=== PATIENT | female | born 2000 | race Caucasian/White ===

== ENCOUNTER 2022-05-20 20:32 | Emergency (ER) | payer MEDICAID ==
[~2022-05-20] VITALS: Ht 154.9 cm; Wt 65.9 kg
[2022-05-20 22:04] VITALS: BP 89/52
[2022-05-20] MEDS ORDERED: OFLO5DRO5 RIGHT EAR (23:07)
[2022-05-20] MEDS ORDERED: [UNRECOGNIZED DRUG - CODE] PO (23:07)
[2022-05-20] MEDS ORDERED: amoxicillin/clavulanate potass. 1000/62.5mg TAB.SR.12h PO STA (23:08)
[2022-05-20] MEDS ORDERED: acetaminophen 325mg tablet PO ONE (23:10)
[2022-05-20] MEDS ORDERED: ibuprofen 200mg tablet PO ONE (23:20)
== END 2022-05-20 23:26 | disposition home or self-care (01) ==
LOC: ER 20:33
DX: H66.91 Otitis media, unspecified, right ear (principal)
CPT/HCPCS: 99283

== ENCOUNTER 2024-07-17 21:17 | Emergency (ER) | payer MEDICAID ==
[~2024-07-17] VITALS: Ht 154.9 cm; Wt 84.9 kg
[~2024-07-17 21:17] MED LIST: OFLO5DRO5 RIGHT EAR; [UNRECOGNIZED DRUG - CODE] PO
[2024-07-17 21:36] VITALS: PULSE 87; RESP 3; TEMP 97.3; O2SAT 96
== END 2024-07-17 23:58 | disposition left against medical advice (07) ==
LOC: ER 21:18
DX: R10.9 Unspecified abdominal pain (principal); Z53.21 Procedure and treatment not carried out due to patient leaving prior to being seen by health care provider

== ENCOUNTER 2024-08-30 02:42 | Emergency (ER) | payer MEDICAID ==
[~2024-08-30] VITALS: Ht 154.9 cm; Wt 81.8 kg
[2024-08-30 02:46] VITALS: TEMP 97.2
[2024-08-30 03:05] LABS: LEUKOCYTE ESTERASE ,URINE MODERATE (Neg); NITRITES, URINE NEGATIVE (Neg); OCCULT BLOOD,URINE LARGE (Neg)
[2024-08-30 03:13] LABS: UA COLLECTION TYPE CLN CATCH MIDSTREAM
[2024-08-30 03:14] LABS: SQUAMOUS EPITHELIAL CELL,UR FEW /LPF (FEW)
[2024-08-30 03:15] LABS: MUCUS STRANDS MODERATE /LPF (Neg)
--- NOTE | 2024-08-30 03:38 | Physician Documentation ---
History of Present Illness ~ Chief Complaint: Urinary Symptoms Stated Complaint: LOWER ABDOMINAL PAIN Time Seen by MD: 03:33 OK to notify your PCP?: Yes Primary Medical Doctor: [facility] Source: patient, RN/MD, RN notes reviewed, old records Mode of Arrival: POV Exam Limitations: no limitations HPI 23 year old female presents to emergency department seen in bed 02 presenting for complaints of urinary symptoms for two days. She states that she has been having clear and cloudy discharge which is unusual for her. Additionally she s tates that when urinating she has been having increased frequency and pain. She denies any fevers, flank pain, or new sexual partners. Medication Reconciliation Allergies: Coded Allergies: No Known Allergies (Unverified , 08/30/24) Scheduled Amoxicillin/Potassium Clav (Amoxicillin-Clav ER 1,000-62.5), 1 TAB PO Q12H Doxycycline Hyclate (Doxycycline Hyclate), 1 CAP PO Q12H Ofloxacin (Ofloxacin), 10 DROP RIGHT EAR Q12H Past Medical History Past Medical History: No Pertinent History Past Surgical History: no surgical history Alcohol Use: None Lives with: Mother, Father Lives In: Home Review of Systems All Other Systems at this time: Reviewed and Negative ROS As stated above in the HPI, otherwise all systems are reviewed and negative. Physical Exam Vital Signs: RN Vital Signs have been reviewed: Yes, Temperature: 97.2, Source: Oral, Heart Rate: 92, Respiratory Rate: 18, BP: 118/85, Pulse Oximetry: 97, Weight: 81.820 Pulse Oximetry Reflects: adequate oxygenation Physical Exam General: The patient is well developed, well nourished, nontoxic appearing and is in no acute distress. Skin: [place], warm and dry with no rashes. HEENT: Head was normocephalic and atraumatic. Eyes - pupils equal, round, reactive to light and accommodation. Extraocular movements were intact. Conjunctivae were nonicteric. Ears - bilateral tympanic membranes were normal. The mouth and oropharynx were clear with moist mucous membranes. There were no pharyngeal exudates or erythema. Neck: Supple and nontender. There was no jugular venous distention, lymphadenopathy, thyromegaly or masses. Chest: Clear to auscultation bilaterally without wheezes, rales or rhonchi. No accessory muscle use. No dullness to percussion. Heart: Rate regular and rhythmic. S1, S2. No murmurs. Palpation of the chest wall was normal. No rubs or thrills. Abdomen: Suprapubic tenderness. Positive bowel sounds. No guarding or rebound. No hepatosplenomegaly or palpable masses. Extremities: No cyanosis, clubbing or edema. The patient moves all extremit ies. Pulses were equal and symmetric. Neurologic: Cranial nerves II-XII were intact. Sensation was intact to light touch throughout. Motor strength was 5/5 in all four extremities. Deep tendon reflexes were intact in both upper and lower extremities. Psychologic: The patient was oriented to person, place and time. The patient demonstrated appropriate judgement and insight. Progress Results/Orders Reviewed/noted all lab results: Yes Results/Orders Orders - MARCOS CAMP MD Cult Urine + [place] (08/30/24 03:15) Completed Orders - MARCOS CAMP MD Ua W/Microscopic, Cult If Ind (08/30/24 02:51) Doxycycline 100mg Capsule (Vibramycin 10 (08/30/24 03:43) Phenazopyridine Tablet (Pyridium Tablet) (08/30/24 03:45) Medications Received in ER Medications (Trade) Dose Ordered Sig/Suhas Route PRN Reason Start Time Stop Time Status Last Admin Dose Admin (VIBRAMYCIN 100mg capsule) 100 mg ONCE STAT PO 08/30/24 03:43 08/30/24 03:47 DC 08/30/24 04:16 100 MG (Pyridium tablet) 200 mg ONCE ONCE PO 08/30/24 03:45 08/30/24 03:47 DC 08/30/24 04:16 200 MG Vital Signs 08/30/24 08/30/24 08/30/24 02:46 02:59 04:19 Temp 97.2 Pulse 92 88 Resp 18 16 B/P (MAP) 118/85 112/72 Pulse Ox 97 99 Laboratory Tests Test 08/30/24 02:51 Urine Specimen Description Cln catch midstream Urine Color Yellow Urine Clarity Cloudy Urine pH 6.0 Urine Specific Leiter 1.025 Urine Protein 100 H Urine Glucose (UA) Negative Urine Ketones Negative Urine Occult Blood Large H Urine Nitrite Negative Urine Bilirubin Negative Urine Urobilinogen 0.2 Urine Leukocyte Esterase Moderate H Urine RBC 20-50 Urine WBC 20-30 H Urine Squamous Epithelial Cells Few Urine Bacteria 1+ Urine Mucus Moderate Urine Culture Indicated Indicated Volume Urine Centrifuged 10 ml Urine Comment Microbiology Date/Time Source Procedure Growth Status 08/30/24 03:15 Urine Clean Catch Midstream Urine Culture - Preliminary Culture received. Resulted Re-Evaluation Re-Evaluation : Re-Evaluation: Improved Progress Patient was seen and examined. Patient is given reassurance. Patient was found to have a urinary tract infection with a significant amount of WBCs. The patient had no concerns regarding STDs and did not want to be tested. She states she has had UTIs in the past. She denies any nausea vomiting fevers or significant flank pain. Patient was given doxycycline in his single dose of Pyridium prior to discharge. She was encouraged to drink lots of fluids. Patient's UA shows a specific gravity of 1.025 with large occult blood moderate leukocyte esterase with 20-50 RBCs 20-30 WBCs few squamous epithelial cells with 1+ bacteria. Patient had no signs of pyelonephritis able to tolerate her pills and was discharged home. Medical Decision Making Urinary Diff Dx:Considerations: Include: PID, Pyelonephritis, Urinary Obstruction, Urolithiasis, Urinary retention, UTI Departure Time of Disposition: 03:48 Disposition: 01 HOME / SELF CARE / HOMELESS Impression: Primary Impression: Acute urinary tract infection Condition: Stable Discharge Instructions: Urinary Tract Infection, Adult Referrals: NO PRIMARY CARE PROVIDER (PCP) Prescriptions Doxycycline Hyclate (Doxycycline Hyclate) 100 Mg Capsule 1 CAP PO Q12H for 10 Days, #20 CAP Prov: MARCOS CAMP MD 08/30/24 Education Educated: Patient Educated regarding: diagnosis, treatment, prognosis Signature Scribe Signature: Scribed for Marcos Camp MD by Rita Marie . 08/30/24 03:49 Attestation: The note accurately reflects work and decisions made by me.Marcos Camp MD 08/30/24 03:37 MARCOS CAMP MD Aug 30, 2024 03:37 RITA CHAPA Aug 30, 2024 03:49
[2024-08-30] MEDS ORDERED: DOXY-225 PO (03:47)
[2024-08-30] MEDS: phenazopyridine 100mg tablet PO ONE (04:16)
[2024-08-30] MEDS: DOXYCYCLINE 100MG CAPSULE PO STA (04:16)
[2024-08-30 04:19] VITALS: BP 112/72; PULSE 88; RESP 16; O2SAT 99
== END 2024-08-30 04:21 | disposition home or self-care (01) ==
LOC: ER 02:43
DX: N39.0 Urinary tract infection, site not specified (principal)
CPT/HCPCS: 81001; 87077; 87088; 87186; 99283

== ENCOUNTER 2024-11-09 16:07 | Emergency (ER) | payer MEDICAID ==
[~2024-11-09] VITALS: Ht 157.5 cm; Wt 79.4 kg
[2024-11-09 16:09] VITALS: BP 129/95; PULSE 118; RESP 18; O2SAT 100
--- NOTE | 2024-11-09 17:18 | Physician Documentation ---
History of Present Illness ~ Chief Complaint: Mouth Pain Stated Complaint: "SOMETHING GROWING IN MOUTH" Time Seen by MD: 16:42 Primary Medical Doctor: [facility] HPI This is a 24-year-old female who presents with concern for painful white patches in her mouth including on gums and tongue, patient reports symptoms worsening over the last week. Patient reports she is not on any medications currently. Patient reports no known past medical history. Medication Reconciliation Allergies: Coded Allergies: No Known Allergies (Unverified , 11/09/24) Scheduled Amoxicillin/Potassium Clav (Amoxicillin-Clav ER 1,000-62.5), 1 TAB PO Q12H Nystatin (Nystatin), 5 ML PO Q6H Ofloxacin (Ofloxacin), 10 DROP RIGHT EAR Q12H Past Medical History Past Medical History: No Pertinent History Past Surgical History: no surgical history Alcohol Use: None Lives with: Mother, Father Lives In: Home Review of Systems ROS As stated above in the HPI, otherwise all systems are reviewed and negative. Physical Exam Vital Signs: Temperature: 96.9, Source: Temporal, Heart Rate: 118, Respiratory Rate: 18, BP: 129/95, Pulse Oximetry: 100, Weight: 79.400 Oxygen Flow Rate: 0 Physical Exam VITALS: Reviewed and as above. GENERAL: Alert, nontoxic appearing, no apparent distress. HEENT: White tender patches to upper gums, small amount of plaque able to be scraped from patch to upper gums, entire surface of tongue covered with light growth tender on attempt to scrape, pharynx normal appearance without swelling of tonsils or patches or exudates. RESPIRATORY: No increased work of breathing, no respiratory distress, speaking in full clear sentences Progress Results/Orders Results/Orders Completed Orders - RAFA PALACIO Fluconazole Tablet (Diflucan Tablet) (11/09/24 17:45) Vital Signs 11/09/24 11/09/24 16:09 18:14 Temp 96.9 96.9 Pulse 118 Resp 18 B/P (MAP) 129/95 Pulse Ox 100 O2 Flow Rate 0 Medical Decision Making Findings This is a 24-year-old female who presented with concern for painful white patches in her mouth including on gums and tongue, patient reports symptoms worsening over the last week. No reported past medical history and not currently on medications including steroids or immune suppressants. Concern for thrush versus leukoplakia, given patches or tender will treat for thrush. Due to concern for immune compromise patient has been advised to follow up promptly with primary care for full workup and physical along with follow up to assess for efficacy of treatment for thrush. Patient is well appearing and hemodymanically stable, and appropriate for outpatient follow up. Patient provided home care instructions, follow up instructions, and return to care precautions which she verbalized understanding of. Tooth Diff. Dx: Considerations: Include: Alveolar fracture, Aveolar osteitis, ANUG, Facial cellulitis, Periapical abscess, Periodontal abscess Throat Diff Dx: Considerations: Include: AIDS, Epiglottitis, Esophageal candidiasis, Hand foot mouth disease, Herpangina, Herpetic stomatitis, Herpes simplex, Infection mononucleosis, Immunodeficiency, John's angina, Peritonsillar abscess, Peritonsillar cellulitis, Pharyngitis-diphtheria, P haryngitis-strepococcal, Pharyngitis-viral, Thrush, URI Departure Time of Disposition: 17:29 Disposition: HOME / SELF CARE / HOMELESS Impression: Primary Impression: Thrush, oral Condition: Improved Discharge Instructions: Oral Thrush, Adult, [id number] Additional Instructions: Please use the nystatin mouthwash as prescribed. I suspect this is a condition called thrush, you will need to follow up with the primary care provider for further assessment of the reason you develop this condition as it can be sign of immune compromise and to assess for effectiveness of treatment. You will need a full workup with your primary care provider to include HIV testing. Please follow up with your primary care provider in the next few days. Please return to the emergency department for any new or worsening concerning symptoms. Referrals: NO PRIMARY CARE PROVIDER (PCP) Prescriptions Nystatin (Nystatin) 100,000 Unit/Ml Oral.susp 5 ML PO Q6H for 10 Days, #200 ML Swish and swallow Prov: RAFA PALACIO 11/09/24 Education Educated: Patient Educated regarding: diagnosis, treatment, prognosis, need for follow up Signature Scribe Signature: No Scribe Attestation: The note accurately reflects work and decisions made by me.NURYS Bass 11/10/24 11:10 RAFA PALACIO Nov 09, 2024 17:18
[2024-11-09] MEDS ORDERED: NYST100069 PO (17:41)
[2024-11-09 18:14] VITALS: TEMP 96.9
== END 2024-11-09 18:25 | disposition home or self-care (01) ==
LOC: ER 16:07
DX: B37.0 Candidal stomatitis (principal)
CPT/HCPCS: 99283